=== PATIENT | male | born 1990 | race Two or more races ===

== ENCOUNTER 2019-06-06 19:25 | Emergency (ER) | payer MEDICAID, OTHER ==
[~2019-06-06] VITALS: Ht 175.3 cm; Wt 86.6 kg
--- NOTE | 2019-06-06 19:38 | NUR ---
BIB AND [employer]. BROUGHT IN CUFFED IN [facility]. TO ER BED 15. AAOX4. NO RESP DISTRESS NOTED, BREATHING EVEN AND UNLABORED. BROUGHT IN FOR WEIRD BEHAVIOR. PER [employer] AND EMS REPORT, PT WAS FOUND WANDERING SOMEONE ELSE BACKYARD LOOKING FOR HIS SON. ACCORDING TO REPORT PT SON IS WITH THE IN [place]. PT IS REPORTS TO BE HAVING A TOUGHT TIMES. EMS REPORTED THE THE BROTHER VERBALIZED THAT HE HAS BEEN DEPRESSED BUT PT DENIED. PT ALSO CO L SHOUDER PAIN, HE VERBALIZED THAT IT IS POSSIBLY DISOLOCATED.. L HAND LACERATION WRAPPED IN GAUZE. AWAITING MD FOR EVAL
--- NOTE | 2019-06-06 19:43 | NUR ---
AT BEDSIDE FOR EVAL.
[2019-06-06] MEDS ORDERED: HYDROCODONE/APAP 5/325MG 1 EACH TABLET ONE (19:46)
[2019-06-06] MEDS ORDERED: HYDROCODONE/APAP 5/325MG 1 EACH TABLET PO ONE (20:00)
[2019-06-06 20:05] LABS: BASOPHILS % (AUTO) 0.3 % (0.0-2.0); EOSINOPHILS % (AUTO) 0.1 % (0.0-6.0); HEMATOCRIT 45 % (39-51); HEMOGLOBIN 15.5 g/dL (13.5-17.5); LYMPHOCYTES # (AUTO) 0.5 /CMM (0.8-4.8); LYMPHOCYTES % (AUTO) 3.3 % (20.0-44.0); MEAN CORPUSCULAR HGB CONC 34 g/dl (31.0-36.0); MEAN CORPUSCULAR VOLUME 97 fL (80-96); MONOCYTES # (AUTO) 1.3 /CMM (0.1-1.30); MONOCYTES % (AUTO) 9.3 % (2.0-12.0); NEUTROPHILS # (AUTO) 11.9 /CMM (1.8-8.9); PLATELET COUNT (AUTO) 207 /CMM (150-450); RED BLOOD CELL COUNT(AUTO) 4.62 MIL/uL (4.5-6.0); WHITE BLOOD COUNT (AUTO) 13.6 K/uL (4.3-11.0)
[2019-06-06 20:13] LABS: CALCIUM, SERUM 9.7 mg/dL (8.5-10.1); CARBON DIOXIDE 25 mmol/L (21-32); CHLORIDE 97 mmol/L (98-107); CREATININE 1.5 mg/dL (0.6-1.3); GLUCOSE 114 mg/dL (74-106); POTASSIUM 3.1 mmol/L (3.5-5.1); SODIUM SERUM 135 mmol/L (136-145); UREA NITROGEN, BLOOD 9 mg/dL (7-18)
[2019-06-06 20:26] LABS: ALANINE AMINOTRANSFERASE 68 U/L (12-78); ALBUMIN 4.6 g/dL (3.4-5.0); ALCOHOL, BLOOD < 3 mg/dL (0-0); ALKALINE PHOSPHATASE 84 U/L (46-116); ASPARTATE AMINOTRANSFERASE 88 U/L (15-37); BILIRUBIN,DIRECT 0.4 mg/dL (0.0-0.2); BILIRUBIN,TOTAL 1.7 mg/dL (0.2-1.0); TOTAL PROTEIN, SERUM 8.5 g/dL (6.4-8.2)
--- NOTE | 2019-06-06 20:28 | NUR ---
URINE COLLECTED AND SENT TO LAB
--- NOTE | 2019-06-06 20:36 | NUR ---
HAND DRESSING REMOVED AND CLEANED BY EMT. NOTED DEEP LACERATION FROM THE MIDDLE OF THE PALM TO 2ND DIGIT 1ST INTERPHALANGE
[2019-06-06 20:38] LABS: ACETAMINOPHEN 0 ug/ml (10-30); SALICYLATE 1.9 mg/dL (2.8-20.0)
[2019-06-06 20:48] LABS: APPEARANCE,URINE Clear (CLEAR); BILIRUBIN,URINE Negative (NEGATIVE); BLOOD, URINE Small Ery/uL (NEGATIVE); COLOR,URINE Yellow (YELLOW); KETONES,URINE Negative (NEGATIVE); LEUKOCYTE ESTERASE ,URINE Small (NEGATIVE); NITRITE, URINE Negative (NEGATIVE); PROTEIN,URINE 30 mg/dl (NEGATIVE); UGLUCOSE Negative (NEGATIVE); UROBILINOGEN,URINE 0.2 EU/dL (0.2)
--- NOTE | 2019-06-06 20:57 | NUR ---
XRAY DONE AT BEDSIDE. PT CAME BACK FROM CT. MD AT BEDSIDE FOR HAND LACERATION EVAL
[2019-06-06] MEDS ORDERED: POTASSIUM CHLORIDE 20 MEQ TAB.PRT.SR PO ONE ×2 (21:00→23:18)
[2019-06-06] MEDS ORDERED: LIDOCAINE 2% 20 ML MDV TP ONE (21:00)
[2019-06-06] MEDS ORDERED: TDAP [DIPH/PERTUSSIS/TET] 0.5 ML VIAL IM ONE ×2 (21:00→23:18)
[2019-06-06 21:10] LABS: BACTERIA,URINE Few /HPF (None Seen); SQUAMOUS EPITHELIAL CELL,UR Few /HPF (None Seen)
[2019-06-06] MEDS ORDERED: LIDOCAINE 2% 50 ML MDV IJ ONE (21:18)
--- NOTE | 2019-06-06 22:11 | NUR ---
PAGED MARIAMA FOSTER
--- NOTE | 2019-06-07 01:20 | NUR ---
Patient discharged to home in stable condition. Written and verbal after care instructions given. Patient verbalizes understanding of instruction.
[2019-06-07 01:21] VITALS: BP 129/71
== END 2019-06-07 01:22 | disposition home or self-care (01) ==
LOC: ER 19:31
DX: S62.002A Unspecified fracture of navicular [scaphoid] bone of left wrist, initial encounter for closed fracture (principal); S61.412A Laceration without foreign body of left hand, initial encounter; S40.012A Contusion of left shoulder, initial encounter; S00.03XA Contusion of scalp, initial encounter; S50.312A Abrasion of left elbow, initial encounter; S80.212A Abrasion, left knee, initial encounter; F15.10 Other stimulant abuse, uncomplicated; W19.XXXA Unspecified fall, initial encounter; Y93.89 Activity, other specified; Y92.89 Other specified places as the place of occurrence of the external cause; Y99.8 Other external cause status
CPT/HCPCS: 12002; 29125; 36415; 70450; 73030; 73110; 73130; 80048; 80076; 80305; 80307; 80329; 81001; 85025; 90471; 90715; 99285; A6403; G0480; J3490; 81000-TC